=== PATIENT | male | born 1990 | race Caucasian/White ===

== ENCOUNTER 2021-04-03 18:21 | Emergency (ER) | payer OTHER ==
[~2021-04-03] VITALS: Ht 177.8 cm; Wt 106.6 kg
== END 2021-04-03 19:25 | disposition home or self-care (01) ==
LOC: ER 18:21
DX: S43.401A Unspecified sprain of right shoulder joint, initial encounter (principal); W05.2XXA Fall from non-moving motorized mobility scooter, initial encounter
CPT/HCPCS: 73030; 99283-25